=== PATIENT | female | born 1980 | race Caucasian/White ===

== ENCOUNTER 2020-05-29 06:57 | Outpatient (NON) | payer BC, SELFPAY ==
[2020-05-29 18:51] LABS: SARS-CoV-2 RNA PCR Negative
== END 2020-05-29 06:58 ==
PROVIDERS: Visit Provider Physician Assistant
DX: Z20.828 Contact with and (suspected) exposure to other viral communicable diseases (principal); R51.9 Headache, unspecified
CPT/HCPCS: 87635; C9803; U0003